=== PATIENT | female | born 1970 | race Caucasian/White ===

== ENCOUNTER 2019-02-15 09:33 | Outpatient (CLI) | payer BC ==
--- NOTE | 2019-02-15 16:25 | MMO ---
Bilateral MAMMO Bilat Screen [facility]. CLINICAL HISTORY: Patient is 48 years old and is seen for screening. The patient has no family history of breast cancer. The patient has no personal history of cancer. VIEWS: The views performed were: bilateral craniocaudal with tomosynthesis and bilateral mediolateral oblique with tomosynthesis. FILMS COMPARED: The present examination has been compared to prior imaging studies performed at [facility] on 12/19/2008, 12/20/2009, 05/05/2011, 06/16/2011, 06/17/2012, 06/28/2013, 09/26/2014, 10/30/2015 and 04/15/2017, and at [facility] on 12/17/2004. MAMMOGRAM FINDINGS: The breasts are heterogeneously dense, which could obscure a lesion on mammography. There are stable benign appearing calcifications seen in both breasts. There are no suspicious masses, suspicious calcifications, or new areas of architectural distortion. IMPRESSION: THERE IS NO MAMMOGRAPHIC EVIDENCE OF MALIGNANCY. A ROUTINE FOLLOW-UP MAMMOGRAM IN 1 YEAR IS RECOMMENDED. THE RESULTS OF THIS EXAM WERE SENT TO THE PATIENT. ACR BI-RADS Category 2 - Benign finding MAMMOGRAPHY NOTE: 1. A negative mammogram report should not delay a biopsy if a dominant of clinically suspicious mass is present. 2. Approximately 10% to 15% of breast cancers are not detected by mammography. 3. Adenosis and dense breasts may obscure an underlying neoplasm.
== END 2019-02-15 09:34 | disposition home or self-care (01) ==
LOC: BICMAMMO 09:33
PROVIDERS: ATTEND Family Medicine
DX: Z12.31 Encounter for screening mammogram for malignant neoplasm of breast (principal)
CPT/HCPCS: 77063; 77067

== ENCOUNTER 2020-01-19 08:41 | Outpatient (CLI) | payer BC ==
--- NOTE | 2020-01-19 09:36 | MMO ---
Bilateral MAMMO Bilat Diag [facility]. CLINICAL HISTORY: Patient is 49 years old and is seen for diagnostic exam and palpable abnormality in the right breast. The patient has no family history of breast cancer. The patient has no personal history of cancer. The patient has a history of bilateral mastopexy in June, and cyst aspiration in 2010 - benign. VIEWS: The views performed were: bilateral craniocaudal with tomosynthesis; bilateral mediolateral oblique with tomosynthesis; and bilateral mediolateral with tomosynthesis. FILMS COMPARED: The present examination has been compared to prior imaging studies performed at [facility] on 04/15/2017, 02/15/2019 and 01/19/2020. This study has been interpreted with the assistance of computer-aided detection. MAMMOGRAM FINDINGS: The breasts are heterogeneously dense, which could obscure a lesion on mammography. Benign calcifications are noted bilaterally. Ultrasoundof region of palpable concern at 1:00 right breast shows no abnormality. There are no suspicious masses, suspicious calcifications, or new areas of architectural distortion. IMPRESSION: THERE IS NO MAMMOGRAPHIC EVIDENCE OF MALIGNANCY. A ROUTINE FOLLOW-UP MAMMOGRAM IN 1 YEAR IS RECOMMENDED. THE RESULTS OF THIS EXAM WERE SENT TO THE PATIENT. ACR BI-RADS Category 2 - Benign finding MAMMOGRAPHY NOTE: 1. A negative mammogram report should not delay a biopsy if a dominant of clinically suspicious mass is present. 2. Approximately 10% to 15% of breast cancers are not detected by mammography. 3. Adenosis and dense breasts may obscure an underlying neoplasm. Reported by: SERA CASTAÑEDA MD Electonically Signed: [id number]
--- NOTE | 2020-01-19 11:01 | ULT ---
RIGHT BREAST ULTRASOUND: HISTORY: A 49-year-old female with palpable abnormality at the 1 o'clock position of the right breast. FINDINGS: Correlation is made with mammograms of the same date. Sonographic evaluation of the region of palpable concern at the 1 o'clock position of the right breas t demonstrates no abnormality. IMPRESSION: 1. BIRADS category 2 - benign findings. Return to annual mammographic screening. 2. Further evaluation (including biopsy) should be based on clinical findings/suspicion. POS: OFF
== END 2020-01-19 08:42 | disposition home or self-care (01) ==
LOC: BICMAMMO 08:41
PROVIDERS: ATTEND Family Medicine
DX: N63.10 Unspecified lump in the right breast, unspecified quadrant (principal)
CPT/HCPCS: 77066; G0279

== ENCOUNTER 2021-02-25 04:23 | Emergency (ER) | payer BC ==
[2021-02-25] MEDS ORDERED: Aspirin Chewable 81 MG TAB ONE (04:43)
[2021-02-25 05:04] LABS: #Eosinphils 0.2 thou/uL (0.0-0.7); #Lymphocytes 0.9 thou/uL (1.20-3.40); #Monocytes 0.4 thou/uL (0.11-0.59); #Neutrophils 7.9 thou/uL (1.40-6.50); %Basophils 0.2 % (0.0-1.0); %Eosinophils 2.4 % (0.0-10.0); %Monocytes 4.4 % (0.0-10.0); %Neutrophils 84.1 % (42.0-75.0); Hemoglobin 13.8 g/dL (12.0-16.0); Mean Corpuscular HGB CONC 32.8 g/dL (32.0-36.0); Mean Corpuscular Hemoglobin 30.6 pg (27.0-31.0); Mean Corpuscular Volume 93.4 fL (78.0-98.0); Mean Platelet Volume 6.7 fL (7.4-10.4); Platelet Count 367 thou/uL (130-400); RBC Distribution Width 12.9 % (11.5-14.5); White Blood Cell (WBC) Count 9.4 thou/uL (4.8-10.8)
[2021-02-25 05:20] LABS: ALT (SGPT) 21 U/L (8-55); AST (SGOT) 21 U/L (5-34); Albumin 4.1 g/dL (3.5-5.0); Alkaline Phosphatase 66 U/L (40-110); Anion Gap 17 mmol/L (10-20); BUN (Urea Nitrogen) 16 mg/dL (9.8-20.1); Bilirubin, Total 0.6 mg/dL (0.2-1.2); Calc. Creatinine Clearance 0 mL/min (70-130); Calcium 9.3 mg/dL (7.8-10.44); Carbon Dioxide 23 mmol/L (22-29); Chloride 104 mmol/L (98-107); Globulin 2.4 g/dL (2.4-3.5); Glucose 139 mg/dL (70-105); Potassium 3.9 mmol/L (3.5-5.1); Protein, Total 6.5 g/dL (6.0-8.3); Sodium 140 mmol/L (136-145)
[2021-02-25] MEDS ORDERED: Sucralfate 1 GM/10 ML UDCUP ONE (05:46)
== END 2021-02-25 06:00 | disposition home or self-care (01) ==
LOC: ERS 04:23
DX: R07.89 Other chest pain (principal); R00.0 Tachycardia, unspecified; K21.9 Gastro-esophageal reflux disease without esophagitis; I10 Essential (primary) hypertension; Z79.899 Other long term (current) drug therapy
CPT/HCPCS: 71045; 80053; 84484; 85025; 85379; 93005; 94760

== ENCOUNTER 2021-04-11 11:55 | Outpatient (CLI) | payer BC | END 2021-04-11 11:56 | disposition home or self-care (01) | LOC: BICMAMMO 11:55 | PROVIDERS: ATTEND Family Medicine | DX: Z12.31 Encounter for screening mammogram for malignant neoplasm of breast (principal); Z91.89 Other specified personal risk factors, not elsewhere classified | CPT/HCPCS: 77063; 77067 ==

== ENCOUNTER 2022-04-14 11:58 | Outpatient (CLI) | payer BC | END 2022-04-14 11:59 | disposition home or self-care (01) | LOC: BICMAMMO 11:58 | PROVIDERS: ATTEND Family Medicine | DX: Z12.31 Encounter for screening mammogram for malignant neoplasm of breast (principal) | CPT/HCPCS: 77063; 77067 ==

== ENCOUNTER 2023-05-06 11:09 | Outpatient (CLI) | payer BC | END 2023-05-06 11:10 | disposition home or self-care (01) | LOC: BICMAMMO 11:09 | PROVIDERS: ATTEND Family Medicine | DX: Z12.31 Encounter for screening mammogram for malignant neoplasm of breast (principal); Z91.89 Other specified personal risk factors, not elsewhere classified | CPT/HCPCS: 77063; 77067 ==